=== PATIENT | female | born 1975 | race Caucasian/White ===

== ENCOUNTER → 2016-05-26 | Outpatient (CLI) | payer OTHER ==
[~2016-05-26] MED LIST: ENDOMETRIN100 MG VG; ESTRADIOL2 MG PO; LEVOTHYROXINE75 MCG PO; PRENATAL TABLE1 EAC3 PO; ZYRTEC10 M3 PO
== END | disposition home or self-care (01) ==
LOC: CDC 10:16
DX: E11.9 Type 2 diabetes mellitus without complications (principal)
CPT/HCPCS: 93000

== ENCOUNTER 2016-07-31 19:09 | Inpatient (IN) | payer OTHER ==
[~2016-07-31] VITALS: Ht 167.6 cm; Wt 117.9 kg
[2016-07-31 19:42] VITALS: BP 133/78
[2016-07-31] MEDS ORDERED: GLYBURIDE5 MG PO (20:00)
[2016-07-31] MEDS ORDERED: FA-80.8 MG PO (20:00)
[2016-07-31] MEDS ORDERED: VALACYCLOVIR500 MG PO (20:01)
[2016-07-31 20:41] LABS: POINT-OF-CARE METER ID UU13113801
[2016-07-31 21:00] LABS: EOSINOPHIL (%) 1.5 % (0-5); EOSINOPHIL COUNT 0.1 K/uL (0-0.3); HEMATOCRIT 37.2 % (36.0-46.0); IMMATURE GRANULOCYTE (%) 0.3 % (0.0-0.7); INSTRUMENT ABS NEUTROPHIL CT 4.9 K/uL; LYMPHOCYTE COUNT 1.9 K/uL (1.0-2.8); MCH 30.1 PG (29.0-34.0); MCHC 33.9 G/DL (30.0-36.0); MCV 88.8 FL (83-99); MEAN PLAT.VOLUME 10.9 uM^3 (9.5-12.4); MONOCYTE (%) 5.9 % (3-12); MONOCYTE COUNT 0.4 K/uL (0-0.8); NEUTROPHIL (%) 66.5 % (45-76); NEUTROPHIL COUNT 4.9 K/uL (1.8-6.4); PLATELET COUNT 161 K/uL (156-360); RBC DIS.WIDTH-CV 13.2 % (11.8-14.6); RBC DIS.WIDTH-SD 42.6 % (39-53); RED BLOOD COUNT 4.19 M/uL (3.80-5.20); WHITE BLOOD COUNT 7.3 K/uL (4.1-10.2)
[2016-07-31 21:01] VITALS: BP 123/78
[2016-07-31 21:33] VITALS: BP 133/82
[2016-07-31 22:12] VITALS: BP 113/70
[2016-07-31 22:25] LABS: POINT-OF-CARE METER ID UU13113801
[2016-07-31 23:17] VITALS: BP 101/56
[2016-08-01] VITALS (23 sets, daily range): BP systolic 100–180; BP diastolic 52–89
[2016-08-01 05:22] LABS: POINT-OF-CARE METER ID UU13113801
[2016-08-01 07:43] LABS: POINT-OF-CARE METER ID UU13113801; POINT-OF-CARE USER ID RADDNY
[2016-08-01 10:43] LABS: POINT-OF-CARE METER ID UU13113801; POINT-OF-CARE USER ID RADDNY
[2016-08-01 13:15] LABS: POINT-OF-CARE METER ID UU13113801; POINT-OF-CARE USER ID RADDNY
[2016-08-01 14:23] LABS: POINT-OF-CARE METER ID UU13113801; POINT-OF-CARE USER ID RADDNY
[2016-08-01 17:30] LABS: POINT-OF-CARE METER ID UU13113801; POINT-OF-CARE USER ID RADDNY
[2016-08-02 14:29] VITALS: BP 114/69
[2016-08-02 22:27] LABS: POINT-OF-CARE METER ID UU13113801; POINT-OF-CARE USER ID STWJCF31
[2016-08-02 22:51] VITALS: BP 131/75
[2016-08-03 07:11] VITALS: BP 140/74
[2016-08-03 07:58] LABS: POINT-OF-CARE METER ID UU13113801
[2016-08-03] MEDS ORDERED: IBUPROFEN800 MG PO (11:53)
== END 2016-08-03 14:33 | disposition home or self-care (01) | DRG 775 ==
LOC: LDRP-OP → 2WEST 19:10 → LDRP-OP 09-07 14:27
PROVIDERS: Obstetrics & Gynecology
PROC: 3E0P7GC Introduction of Other Therapeutic Substance into Female Reproductive, Via Natural or Artificial Opening (ICD-10-PCS; principal; 2016-07-31)
PROC: 10E0XZZ Delivery of Products of Conception, External Approach (ICD-10-PCS; 2016-08-01)
DX: O24.12 Pre-existing type 2 diabetes mellitus, in childbirth (principal); E11.9 Type 2 diabetes mellitus without complications; E03.9 Hypothyroidism, unspecified; O99.214 Obesity complicating childbirth; E66.9 Obesity, unspecified; Z68.38 Body mass index [BMI] 38.0-38.9, adult; O99.284 Endocrine, nutritional and metabolic diseases complicating childbirth; O43.193 Other malformation of placenta, third trimester; Z3A.39 39 weeks gestation of pregnancy; Z37.0 Single live birth; Z79.84 Long term (current) use of oral hypoglycemic drugs; O09.513 Supervision of elderly primigravida, third trimester; Z91.040 Latex allergy status; O75.89 Other specified complications of labor and delivery
CPT/HCPCS: 82948; 85025; G0378; J7120